=== PATIENT | male | born 1995 | race Caucasian/White ===

== ENCOUNTER 2022-04-30 05:17 | Outpatient (CLI) | payer MEDICAID | END 2022-04-30 23:59 | disposition critical access hospital (66) | LOC: EMS 05:17 | DX: R11.10 Vomiting, unspecified (principal); R19.7 Diarrhea, unspecified; R10.84 Generalized abdominal pain | CPT/HCPCS: A0425; A0429; A0999 ==

== ENCOUNTER 2022-04-30 05:31 | Emergency (ER) | payer MEDICAID ==
[2022-04-30] MEDS ORDERED: ONDANSETRON ODT 4 MG TABLET TL STA (05:52)
--- NOTE | 2022-04-30 06:17 | ED Physician Documentation ---
PD HPI NVD - Stated complaint Stated Complaint: ABD PX - Chief complaint Chief Complaint: Abd Pain - History obtained from History obtained from: Patient - Additonal information Additional information: Patient is a 26-year-old male with no history of prior abdominal surgeries presenting for evaluation of nausea, vomiting and diarrhea that has been present since yesterday. Patient [facility] the [facility] living. He thinks he may have ate some steak that is not agreeing with him. He reports having several episodes of emesis consisting of food and saliva. He also reports having 2-3 loose stools.He does admit to drug use but states that the last time he used any was in March and admits to history of smoking fentanyl and meth. He denies SI or HI. He states he has not supposed to be on any current medications. He had refused an IV from EMS. He states that he is afraid of needles and does not want an IV Review of Systems Constitutional: denies: Fever Respiratory: denies: Dyspnea GI: reports: Abdominal Pain, Nausea, Vomiting, Diarrhea : denies: Dysuria Musculoskeletal: denies: Back pain Neurologic: denies: Headache PD PAST MEDICAL HISTORY - Present Medications Home Medications: Ambulatory Orders Medication Instructions Recorded Confirmed Ondansetron Odt [Zofran] 4 mg TL Q6H PRN #10 tablet 04/30/22 - Allergies Allergies/Adverse Reactions: Allergies Allergy/AdvReac Type Severity Reaction Status Date / Time No Known Drug Allergies Allergy Verified 04/30/22 05:47 PD ED PE NORMAL - General General: Alert and oriented X 3, No acute distress, Well developed/nourished - HEENT HEENT: Atraumatic - Neck Neck: Supple, no meningeal sign - Cardiac Cardiac: RRR - Respiratory Respiratory: No respiratory distress, Clear bilaterally - Abdomen Abdomen: Normal bowel sounds, Soft, Non tender, Non distended, Other (No mass, no hernia, no rebound or guarding) - Derm Derm: Warm and dry Results - Vitals Vitals: Vital Signs - 24 hr 04/30/22 04/30/22 04/30/22 05:41 05:48 06:59 Temperature 37.2 C Heart Rate 92 90 76 Respiratory 14 22 15 Rate Blood Pressure 135/83 H 135/83 H 111/88 H O2 Saturation 100 100 98 Oxygen O2 Source Room air PD Medical Decision Making - ED course ED course: Patient is a 26-year-old male presenting for evaluation of nausea and vomiting for the last day with few episodes of loose stools. His vital signs are stable and his abdominal exam is benign. I suspect his symptoms are likely related to a virus or Perhaps something he ate. He still feels nauseous but is not vomiting here. Offered IV fluids as well as checking labs to include electrolytes. Patient states that he is afraid of needles and does not want an IV or for us to check his labs. He is requesting a Gatorade or Pedialyte. He is agreeable to p.o. Zofran. He was able to pass a p.o. challenge after oral Zofran. I did again offer to evaluate him with labs and offered fluids again which he declined. Patient understands that he can return To the emergency department at any time if he changes his mind and is also instructed to return if he develops any worsening symptoms. Departure - Departure Disposition: 01 Home, Self Care Clinical Impression: Nausea & vomiting Condition: Stable Instructions: ED Vomiting Diarrhea Nonspecific Ad Prescriptions: Ondansetron Odt [Zofran] 4 mg TL Q6H PRN #10 tablet PRN Reason: Nausea / Vomiting Comments: You were evaluated for nausea and vomiting today. This is likely from a virus or eating something that is not agreeing with your stomach. You did not want us to check labs or give you IV fluids or IV medications. We did give you oral medication to help with the nausea and you have been able to tolerate liquids which is a good sign.Please continue with staying hydrated today.If you want to try and eat any food I would make sure it is very bland And would eat a small amount first to make sure it settles okay in your stomach. I have sent a written prescription for Zofran with you which you can fill at any local pharmacy. If you have any worsening symptoms such as continued vomiting despite use of medicine, increased pain or any new concerns please feel free to return to the emergency department.
[2022-04-30 07:01] VITALS: BP 111/88
== END 2022-04-30 07:07 | disposition home or self-care (01) ==
LOC: ED 05:31
DX: R11.2 Nausea with vomiting, unspecified (principal)
CPT/HCPCS: 99283; Q0162